=== PATIENT | female | born 1995 | race Caucasian/White ===

== ENCOUNTER 2017-05-06 00:46 | Emergency (ER) | payer OTHER ==
[~2017-05-06] VITALS: Ht 160 cm; Wt 50.0 kg
[2017-05-06 00:56] VITALS: BP 121/69; PULSE 70; RESP 15; TEMP 98.6; O2SAT 98
[2017-05-06] MEDS ORDERED: HYDR-3516 PO (01:02)
[2017-05-06] MEDS ORDERED: HYDROmorphone HCL PF 1 MG/ML VIAL IV PUSH ONE (01:45)
--- NOTE | 2017-05-06 02:08 | PD ---
HPI Chief Complaint: Pain: Acute or Chronic Time Seen by Provider: 01:30 Travel History International Travel<30 days: No Contact w/Intl Traveler<30days: No Traveled to known affect area: No History of Present Illness HPI The patient is a 22-year-old female that is post sinus surgery by Dr. Forbes at [facility] at 11 AM yesterday. She complains of extreme pain in the sinuses and has had some bleeding. She claims a pain level of 10 over 10. She is taking 1-1/2 of the [place] 5/325 tablets without relief. She had nausea and vomited once but is not nauseated now. She denies any fever. She is to take doxycycline and has already filled these tablets and has not yet taken one yet. She has a penicillin allergy. Her last dose of [place], one and a half tablets was 2 hours ago, around 11:30 PM tonight. The patient states there is no chance of . PFSH Past Medical History Kidney Stones: Yes Tetanus Vaccination: Unknown Influenza Vaccination: No ?: Not LMP: 04/15/2017 Past Surgical History Other Surgery: Yes (SINUS SX 05/05/17, LITHOTRIPSY X 2) Social History Alcohol Use: Yes (OCCASIONAL) Tobacco Use: No Substance Use: No Allergies-Medications (Allergen,Severity, Reaction): Coded Allergies: Penicillins (Verified Allergy, Intermediate, Rash, 05/06/17) Reported Meds & Prescriptions Reported Meds & Active Scripts Active Reported Hydrocodone-Acetaminophen 5-325 mg Tab 1 Tab PO Q4H PRN Review of Systems Except as stated in HPI: all other systems reviewed are Neg Physical Exam Narrative GENERAL: Well-nourished, well-developed patient in moderate apparent distress with her nasal/sinus pain. SKIN: Focused skin assessment warm/dry. HEAD: Normocephalic. EYES: No scleral icterus. No injection or drainage. NECK: Supple, trachea midline. No JVD or lymphadenopathy. CARDIOVASCULAR: Regular rate and rhythm without murmurs, gallops, or rubs. RESPIRATORY: Breath sounds equal bilaterally. No accessory muscle use. GASTROINTESTINAL: Abdomen soft, non-tender, nondistended. MUSCULOSKELETAL: No cyanosis, or edema. BACK: Nontender without obvious deformity. No CVA tenderness. ENT: No blood is coursing down the posterior pharyngeal wall. There is a slight ooze of blood coming anterior from the nose, it is only a few drops per hour. It slightly stains a 4 x 4. Data Data Last Documented VS Vital Signs Date Time Temp Pulse Resp B/P (MAP) Pulse Ox O2 Delivery O2 Flow Rate FiO2 05/06/17 00:56 98.6 70 15 121/69 (86) 98 Orders Orders Hydromorphone Pf Inj (Dilaudid Pf Inj) (05/06/17 01:45) MDM Medical Decision Making Medical Screen Exam Complete: Yes Emergency Medical Condition: Yes Medical Record Reviewed: Yes Differential Diagnosis Status post sinus surgery with active bleeding, with severe pain, with infection Narrative Course The patient is post sinus surgery with severe pain. The bleeding is not significant. The patient was given Dilaudid 1 mg IV and this seems to have reduced the pain to an acceptable level-1/10. Impression: Postoperative pain Diagnosis Primary Impression: Postoperative pain Additional Instructions: If you have recurrence of the severe pain you can take 2 tablets every 4 hours of the [place] 5/325. Follow-up later on this morning with Dr. Forbes. Med/Other Pt SpecificInfo: Existing Med Changed Disposition: 01 DISCHARGE HOME Condition: Stable Will Farrell MD May 06, 2017 02:08
[2017-05-06 02:14] VITALS: BP 114/64; PULSE 59; RESP 16; O2SAT 98
== END 2017-05-06 02:21 | disposition home or self-care (01) ==
LOC: PHED 00:46
DX: G89.18 Other acute postprocedural pain (principal)
CPT/HCPCS: 96374; 99284; J1170

== ENCOUNTER 2017-07-12 07:03 | Emergency (ER) | payer OTHER ==
[~2017-07-12] VITALS: Ht 160 cm; Wt 48.0 kg
[~2017-07-12 07:03] MED LIST: HYDR-3516 PO
[2017-07-12 07:05] VITALS: BP 126/61; PULSE 117; RESP 16; TEMP 97.7; O2SAT 98
[2017-07-12 07:23] LABS: BILIRUBIN, URINE NEG (NEG); BLOOD, URINE NEG (NEG); GLUCOSE,URINE NEG (NEG); KETONE, URINE NEG (NEG); NITRITE,URINE NEG (NEG); PH, URINE 5.5 (5.0-8.5); URINE LEUKOCYTE ESTERASE NEG (NEG)
[2017-07-12 07:31] LABS: RBC, URINE 0-3 /hpf (0-3); URINE COLOR YELLOW (YELLW/STRAW); WBC, URINE 0-2 /hpf (0-5)
[2017-07-12] MEDS ORDERED: SODIUM CHLOR 0.9% 1000 ML INJ 1,000 ML IV SCH (07:52)
--- NOTE | 2017-07-12 07:55 | PD ---
HPI Chief Complaint: GI Complaint Time Seen by Provider: 07:52 Travel History International Travel<30 days: No Contact w/Intl Traveler<30days: No Traveled to known affect area: No History of Present Illness HPI 22-year-old female patient presents to the ER today with several days history of nausea, vomiting, diarrhea, fevers or 102 last night, and lower back discomfort. She has had history of kidney stones and states that whenever she has had problems with kidney stones, she has had lower back discomfort. She denies significant abdominal pain, or other symptoms at this time. She has vomited 3 times already this morning. She does not know any sick contacts. Modifying Factors: None Associated Signs & Symptoms: Nausea, vomiting, diarrhea, fevers, lower back discomfort Risk Factors: Previous history of kidney stones PFSH Past Medical History Kidney Stones: Yes Past Surgical History Other Surgery: Yes (SINUS SX 05/05/17, LITHOTRIPSY X 2) Social History Alcohol Use: Yes (OCCASIONAL) Tobacco Use: No Substance Use: No Allergies-Medications (Allergen,Severity, Reaction): Coded Allergies: Penicillins (Verified Allergy, Intermediate, Rash, 07/12/17) Reported Meds & Prescriptions Reported Meds & Active Scripts Active Reported Hydrocodone-Acetaminophen 5-325 mg Tab 1 Tab PO Q4H PRN Review of Systems Except as stated in HPI: all other systems reviewed are Neg Physical Exam Narrative GENERAL: Well-developed young female patient currently in mild distress. Awake and oriented 3. SKIN: Focused skin assessment warm/dry. HEAD: Atraumatic. Normocephalic. EYES: Pupils equal and round. No scleral icterus. No injection or drainage. ENT: No nasal bleeding or discharge. Mucous membranes pink and moist. NECK: Trachea midline. No JVD. Supple. CARDIOVASCULAR: Regular rate and rhythm. No murmur appreciated. RESPIRATORY: No accessory muscle use. Clear to auscultation. Breath sounds equal bilaterally. GASTROINTESTINAL: Abdomen soft, non-tender, nondistended. Hepatic and splenic margins not palpable. Benign. MUSCULOSKELETAL: No obvious deformities. No clubbing. No cyanosis. No edema. NEUROLOGICAL: Awake and alert. No obvious cranial nerve deficits. Motor grossly within normal limits. Normal speech. PSYCHIATRIC: Appropriate mood and affect; insight and judgment normal. Data Data Last Documented VS Vital Signs Date Time Temp Pulse Resp B/P (MAP) Pulse Ox O2 Delivery O2 Flow Rate FiO2 1/14/18 08:49 77 18 106/54 (71) 100 Room Air 07/12/17 07:05 97.7 Orders Orders Urinalysis - C+S If Indicated (07/12/17 07:13) Ed Urine Pregnancytest Poc (07/12/17 07:13) Complete Blood Count With Diff (07/12/17 07:52) Comprehensive Metabolic Panel (07/12/17 07:52) Lipase (07/12/17 07:52) Iv Access Insert/Monitor (07/12/17 07:52) Ecg Monitoring (07/12/17 07:52) Oximetry (07/12/17 07:52) Ondansetron Inj (Zofran Inj) (07/12/17 08:00) Sodium Chlor 0.9% 1000 Ml Inj (Ns 1000 M (07/12/17 07:52) Sodium Chloride 0.9% Flush (Ns Flush) (07/12/17 08:00) Influenzae A/B Antigen (07/12/17 08:02) Labs Laboratory Tests Test 07/12/17 07:10 07/12/17 08:00 Urine Collection Type CLEAN CATCH Urine Color YELLOW Urine Turbidity CLEAR Urine pH 5.5 Urine Specific [place] 1.035 Urine Protein NEG mg/dL Urine Glucose (UA) NEG mg/dL Urine Ketones NEG mg/dL Urine Occult Blood NEG Urine Nitrite NEG Urine Bilirubin NEG Urine Leukocyte Esterase NEG Urine RBC 0-3 /hpf Urine WBC 0-2 /hpf Urine Squamous Epithelial Cells 6-8 /hpf Urine Yeast (Budding) OCC Microscopic Urinalysis Comment CULT NOT INDICATED Urine Collection Time 07:10 White Blood Count 7.1 TH/MM3 Red Blood Count 5.04 MIL/MM3 Hemoglobin 14.2 GM/DL Hematocrit 43.5 % Mean Corpuscular Volume 86.2 FL Mean Corpuscular Hemoglobin 28.2 PG Mean Corpuscular Hemoglobin Concent 32.7 % Red Cell Distribution Width 13.1 % Platelet Count 290 TH/MM3 Mean Platelet Volume 7.8 FL Neutrophils (%) (Auto) 68.2 % Lymphocytes (%) (Auto) 17.1 % Monocytes (%) (Auto) 9.5 % Eosinophils (%) (Auto) 4.8 % Basophils (%) (Auto) 0.4 % Neutrophils # (Auto) 4.9 TH/MM3 Lymphocytes # (Auto) 1.2 TH/MM3 Monocytes # (Auto) 0.7 TH/MM3 Eosinophils # (Auto) 0.3 TH/MM3 Basophils # (Auto) 0.0 TH/MM3 CBC Comment DIFF FINAL Differential Comment Blood Urea Nitrogen 18 MG/DL Creatinine 0.92 MG/DL Random Glucose 87 MG/DL Total Protein 8.2 GM/DL Albumin 3.8 GM/DL Calcium Level 8.8 MG/DL Alkaline Phosphatase 84 U/L Aspartate Amino Transf (AST/SGOT) 24 U/L Alanine Aminotransferase (ALT/SGPT) 23 U/L Total Bilirubin 0.3 MG/DL Sodium Level 136 MEQ/L Potassium Level 3.6 MEQ/L Chloride Level 106 MEQ/L Carbon Dioxide Level 21.3 MEQ/L Anion Gap 9 MEQ/L Estimat Glomerular Filtration Rate 76 ML/MIN Lipase 88 U/L MDM Medical Decision Making Medical Screen Exam Complete: Yes Emergency Medical Condition: Yes Medical Record Reviewed: Yes Interpretation(s) Laboratory Tests Test 07/12/17 07:10 07/12/17 08:00 Urine Squamous Epithelial Cells 6-8 /hpf (0-5) Urine Yeast (Budding) OCC (NONE) Monocytes (%) (Auto) 9.5 % (0.0-8.0) Eosinophils (%) (Auto) 4.8 % (0.0-4.0) Estimat Glomerular Filtration Rate 76 ML/MIN (>89) Differential Diagnosis Nausea, vomiting, diarrhea, fevers, lower back discomfort: Gastroenteritis versus influenza versus dehydration versus metabolic issues versus pancreatitis versus UTI versus , hyperemesis Narrative Course Patient is not . Lab work did not show significant metabolic issues or significant signs of dehydration. Influenza test is negative. Lipase is normal. UA did not show signs of UTI. At this point, symptoms are more indicative of a viral syndrome. Abdomen is benign and I do not suspect an acute intra-abdominal process. Patient was given IV fluid and Zofran in the ER. She did not have any further vomiting episodes. Vital signs are stable in the ER. At this point, my plan would be to release the patient would follow-up to primary care physician. We will give her further symptomatic relief or nausea and vomiting. Return for worsening in symptoms as needed. The plan has been discussed with her and she states understanding. Diagnosis Primary Impression: Nausea and vomiting Med/Other Pt SpecificInfo: Prescription(s) given Scripts Ondansetron Odt (Zofran Odt) 4 Mg Tab 4 MG SL Q6HR Y for Nausea/Vomiting, #7 TAB 0 Refills Prov: Maribel Lizarraga MD 07/12/17 Disposition: 01 DISCHARGE HOME Condition: Stable Maribel Lizarraga MD Jul 12, 2017 07:55
[2017-07-12] MEDS ORDERED: SODIUM CHLORIDE 0.9% FLUSH 10 ML FLUSH IV FLUSH PRN (08:00)
[2017-07-12] MEDS ORDERED: ONDANSETRON HCL 4 MG/2 ML VIAL IVP ONE (08:00)
[2017-07-12 08:10] LABS: AUTOMATED NEUTROPHIL # 4.9 TH/MM3 (1.8-7.7); BASOPHIL % 0.4 % (0.0-2.0); EOSINOPHIL # 0.3 TH/MM3 (0-0.4); EOSINOPHIL % 4.8 % (0.0-4.0); HEMATOCRIT 43.5 % (35.0-46.0); HEMOGLOBIN 14.2 GM/DL (11.6-15.3); LYMPH % 17.1 % (9.0-44.0); LYMPHOCYTE # 1.2 TH/MM3 (1.0-4.8); MEAN CELL VOLUME 86.2 FL (80.0-100.0); MEAN CORPUSCULAR HEMOGLOBIN 28.2 PG (27.0-34.0); MEAN CORPUSCULAR HGB CONC 32.7 % (32.0-36.0); MEAN PLATELET VOLUME 7.8 FL (7.0-11.0); MONO % 9.5 % (0.0-8.0); MONOCYTE # 0.7 TH/MM3 (0-0.9); NEUT % 68.2 % (16.0-70.0); PLATELET COUNT 290 TH/MM3 (150-450); RED BLOOD COUNT 5.04 MIL/MM3 (4.00-5.30); RED CELL DISTRIBUTION WIDTH 13.1 % (11.6-17.2); WHITE BLOOD COUNT 7.1 TH/MM3 (4.0-11.0)
[2017-07-12 08:16] LABS: CHLORIDE 106 MEQ/L (98-107); SODIUM (NA) 136 MEQ/L (136-145)
[2017-07-12 08:19] LABS: CALCIUM 8.8 MG/DL (8.5-10.1)
[2017-07-12 08:20] LABS: ALBUMIN 3.8 GM/DL (3.4-5.0); BICARBONATE 21.3 MEQ/L (21.0-32.0); BLOOD UREA NITROGEN 18 MG/DL (7-18); GLUCOSE,RANDOM 87 MG/DL (74-106); LIPASE 88 U/L (73-393)
[2017-07-12 08:23] LABS: ALT (GPT) 23 U/L (10-53); AST (GOT) 24 U/L (15-37); CREATININE 0.92 MG/DL (0.50-1.00); GLOMERULAR FILTRATION RATE 76 ML/MIN (>89)
[2017-07-12 08:24] LABS: TOTAL BILIRUBIN ADULT 0.3 MG/DL (0.2-1.0); TOTAL PROTEIN 8.2 GM/DL (6.4-8.2)
[2017-07-12 08:26] LABS: ALKALINE PHOSPHATASE 84 U/L (45-117)
[2017-07-12 08:49] VITALS: BP 106/54; PULSE 77; RESP 18; O2SAT 100
[2017-07-12] MEDS ORDERED: ZOFR4TAB3 SL (09:18)
[2017-07-12] MEDS ORDERED: IBUPROFEN 600 MG TAB PO ONE (09:30)
== END 2017-07-12 09:37 | disposition home or self-care (01) ==
LOC: PHED 07:03
DX: R11.2 Nausea with vomiting, unspecified (principal); Z87.442 Personal history of urinary calculi; Z88.0 Allergy status to penicillin
CPT/HCPCS: 80053; 81001; 83690; 84703; 85025; 87804; 96361; 96374; 99284; J2405; J7030

== ENCOUNTER 2017-09-23 14:31 | Emergency (ER) | payer OTHER ==
[~2017-09-23] VITALS: Ht 162.6 cm; Wt 50.9 kg
[~2017-09-23 14:31] MED LIST changes: +ZOFR4TAB3 SL
[2017-09-23 14:36] VITALS: BP 140/63; PULSE 108; RESP 16; TEMP 99.1; O2SAT 98
[2017-09-23 14:59] LABS: BILIRUBIN, URINE NEG (NEG); BLOOD, URINE NEG (NEG); GLUCOSE,URINE NEG (NEG); KETONE, URINE NEG (NEG); NITRITE,URINE NEG (NEG); PH, URINE 6.5 (5.0-8.5); URINE COLOR YELLOW (YELLW/STRAW); URINE LEUKOCYTE ESTERASE NEG (NEG)
[2017-09-23 15:06] LABS: BACTERIA, URINE OCC /hpf; RBC, URINE 0-3 /hpf (0-3); SQUAMOUS EPITHELIAL CELL URINE > 8 /hpf (0-5)
[2017-09-23] MEDS ORDERED: ONDANSETRON HCL 4 MG/2 ML VIAL IV PUSH ONE (15:15)
[2017-09-23] MEDS ORDERED: MORPHINE SULFATE 4 MG/ML INJ IV ONE (15:15)
--- NOTE | 2017-09-23 15:40 | RADRPT ---
EXAM DATE/TIME: 09/23/2017 15:23 [facility] COMPARISON: No previous studies available for comparison. INDICATIONS : Fever, chest pain post abdominal surgery yesterday MEDICAL HISTORY : None. SURGICAL HISTORY : Oocyte retreival ENCOUNTER: Initial ACUITY: 1 day PAIN SCORE: 10/10 LOCATION: Bilateral chest FINDINGS: A single view of the chest demonstrates the lungs to be symmetrically aerated without evidence of mas s, infiltrate or effusion. The cardiomediastinal contours are unremarkable. Osseous structures are intact. CONCLUSION: Normal examination for a patient of this age. Silverio Rajan MD on September 23, 2017 at 15:38 Board Certified Radiologist. This report was verified electronically.
[2017-09-23 15:47] VITALS: BP 99/69; PULSE 77; RESP 18; TEMP 98.9; O2SAT 99
[2017-09-23 15:53] LABS: BASOPHIL % 0.4 % (0.0-2.0); EOSINOPHIL # 0.2 TH/MM3 (0-0.4); EOSINOPHIL % 2.2 % (0.0-4.0); HEMATOCRIT 40.9 % (35.0-46.0); HEMOGLOBIN 13.4 GM/DL (11.6-15.3); LYMPH % 22.1 % (9.0-44.0); LYMPHOCYTE # 1.7 TH/MM3 (1.0-4.8); MEAN CELL VOLUME 84.8 FL (80.0-100.0); MEAN CORPUSCULAR HEMOGLOBIN 27.8 PG (27.0-34.0); MEAN CORPUSCULAR HGB CONC 32.8 % (32.0-36.0); MEAN PLATELET VOLUME 7.9 FL (7.0-11.0); MONO % 11.8 % (0.0-8.0); MONOCYTE # 0.9 TH/MM3 (0-0.9); NEUT % 63.5 % (16.0-70.0); PLATELET COUNT 240 TH/MM3 (150-450); RED BLOOD COUNT 4.83 MIL/MM3 (4.00-5.30); RED CELL DISTRIBUTION WIDTH 13.8 % (11.6-17.2); WHITE BLOOD COUNT 7.8 TH/MM3 (4.0-11.0)
[2017-09-23 16:01] LABS: CHLORIDE 102 MEQ/L (98-107); SODIUM (NA) 135 MEQ/L (136-145)
[2017-09-23 16:04] LABS: CALCIUM 8.8 MG/DL (8.5-10.1)
[2017-09-23 16:05] LABS: ALBUMIN 3.6 GM/DL (3.4-5.0); BICARBONATE 27.7 MEQ/L (21.0-32.0); BLOOD UREA NITROGEN 12 MG/DL (7-18); GLUCOSE,RANDOM 81 MG/DL (74-106)
[2017-09-23 16:08] LABS: ALT (GPT) 15 U/L (10-53); AST (GOT) 15 U/L (15-37); CREATININE 0.86 MG/DL (0.50-1.00); GLOMERULAR FILTRATION RATE 82 ML/MIN (>89)
[2017-09-23 16:10] LABS: TOTAL BILIRUBIN ADULT 0.2 MG/DL (0.2-1.0); TOTAL PROTEIN 7.7 GM/DL (6.4-8.2)
[2017-09-23 16:11] LABS: ALKALINE PHOSPHATASE 97 U/L (45-117)
--- NOTE | 2017-09-23 16:11 | PD ---
HPI . Abdominal pain Chief Complaint: Abdominal Pain Time Seen by Provider: 15:45 Travel History International Travel<30 days: No Contact w/Intl Traveler<30days: [place] Traveled to: [facility] Traveled to known affect area: No History of Present Illness HPI This patient presents with chief complaint of abdominal pain. She states that she feels bloated and constipated. Pain is exacerbated by walking and breathing. Pain is rated 7/10. Associated symptoms include nausea, vomiting, subjective fever and swelling. This patient is status post harvesting of eggs yesterday in [place]. PFSH Past Medical History Diminished Hearing: No Kidney Stones: Yes ?: Not Past Surgical History Other Surgery: Yes (SINUS SX 05/05/17, LITHOTRIPSY X 2) Social History Alcohol Use: Yes (OCCASIONAL) Tobacco Use: No Substance Use: No Allergies-Medications (Allergen,Severity, Reaction): Coded Allergies: Penicillins (Verified Allergy, Intermediate, Rash, 09/23/17) Reported Meds & Prescriptions Reported Meds & Active Scripts Active Zofran Odt (Ondansetron Odt) 4 Mg Tab 4 Mg SL Q6HR PRN Reported Hydrocodone-Acetaminophen 5-325 mg Tab 1 Tab PO Q4H PRN Review of Systems Except as stated in HPI: all other systems reviewed are Neg General / Constitutional: Positive: Fever, Chills Gastrointestinal: Positive: Nausea, Vomiting, Abdominal Pain, Constipation Genitourinary: Positive: Other (Patient has been receiving high dose hormone therapy in preparation for donation of eggs.), No: Urgency, Frequency, Dysuria Physical Exam Narrative GENERAL: Awake and alert and in no acute distress. SKIN: warm/dry. Her face is sunburned. HEAD: Normocephalic. Atraumatic. EYES: Pupils equal and round. No scleral icterus. No injection or drainage. ENT: No nasal bleeding or discharge. Mucous membranes pink and moist. NECK: Trachea midline. Full range of motion without pain.. CARDIOVASCULAR: Regular rate and rhythm. Heart sounds normal. RESPIRATORY: No accessory muscle use. Clear to auscultation. Breath sounds equal bilaterally. GASTROINTESTINAL: Abdomen soft. Lower abdominal tenderness. Bowel sounds present. Nondistended. MUSCULOSKELETAL: No obvious deformities. NEUROLOGICAL: Awake and alert. No obvious cranial nerve deficits. Motor grossly within normal limits. Normal speech. PSYCHIATRIC: Appropriate mood and affect; insight and judgment normal. Data Data Last Documented VS Vital Signs Date Time Temp Pulse Resp B/P (MAP) Pulse Ox O2 Delivery O2 Flow Rate FiO2 09/23/17 16:12 18 09/23/17 15:48 98 Room Air 09/23/17 15:47 98.9 77 99/69 (79) Orders Orders Urinalysis - C+S If Indicated (09/23/17 14:46) Ed Urine Pregnancytest Poc (09/23/17 14:46) Sepsis Workup Initiated (09/23/17 ) Complete Blood Count With Diff (09/23/17 15:03) Comprehensive Metabolic Panel (09/23/17 15:03) Lactic Acid Sepsis Protocol (09/23/17 15:03) Blood Culture (09/23/17 15:03) Chest, Single Ap (09/23/17 15:03) Blood Glucose (09/23/17 15:03) Ecg Monitoring (09/23/17 15:03) Iv Access Insert/Monitor (09/23/17 15:03) Oximetry (09/23/17 15:03) Oxygen Administration (09/23/17 15:03) Ondansetron Inj (Zofran Inj) (09/23/17 15:15) Ct Abd/Pel W Iv Contrast(Rout) (09/23/17 15:03) Morphine Inj (Morphine Inj) (09/23/17 15:15) Iohexol 350 Inj (Omnipaque 350 Inj) (09/23/17 16:15) Labs Laboratory Tests Test 09/23/17 14:40 09/23/17 15:35 09/23/17 15:40 Urine Collection Type CLEAN CATCH Urine Color YELLOW Urine Turbidity CLEAR Urine pH 6.5 Urine Specific [place] 1.015 Urine Protein NEG mg/dL Urine Glucose (UA) NEG mg/dL Urine Ketones NEG mg/dL Urine Occult Blood NEG Urine Nitrite NEG Urine Bilirubin NEG Urine Urobilinogen 0.2 MG/DL Urine Leukocyte Esterase NEG Urine RBC 0-3 /hpf Urine Squamous Epithelial Cells > 8 /hpf Urine Bacteria OCC /hpf Microscopic Urinalysis Comment CULT NOT INDICATED Urine Collection Time 14:40 White Blood Count 7.8 TH/MM3 Red Blood Count 4.83 MIL/MM3 Hemoglobin 13.4 GM/DL Hematocrit 40.9 % Mean Corpuscular Volume 84.8 FL Mean Corpuscular Hemoglobin 27.8 PG Mean Corpuscular Hemoglobin Concent 32.8 % Red Cell Distribution Width 13.8 % Platelet Count 240 TH/MM3 Mean Platelet Volume 7.9 FL Neutrophils (%) (Auto) 63.5 % Lymphocytes (%) (Auto) 22.1 % Monocytes (%) (Auto) 11.8 % Eosinophils (%) (Auto) 2.2 % Basophils (%) (Auto) 0.4 % Neutrophils # (Auto) 5.0 TH/MM3 Lymphocytes # (Auto) 1.7 TH/MM3 Monocytes # (Auto) 0.9 TH/MM3 Eosinophils # (Auto) 0.2 TH/MM3 Basophils # (Auto) 0.0 TH/MM3 CBC Comment DIFF FINAL Differential Comment Blood Urea Nitrogen 12 MG/DL Creatinine 0.86 MG/DL Random Glucose 81 MG/DL Total Protein 7.7 GM/DL Albumin 3.6 GM/DL Calcium Level 8.8 MG/DL Alkaline Phosphatase 97 U/L Aspartate Amino Transf (AST/SGOT) 15 U/L Alanine Aminotransferase (ALT/SGPT) 15 U/L Total Bilirubin 0.2 MG/DL Sodium Level 135 MEQ/L Potassium Level 3.7 MEQ/L Chloride Level 102 MEQ/L Carbon Dioxide Level 27.7 MEQ/L Anion Gap 5 MEQ/L Estimat Glomerular Filtration Rate 82 ML/MIN Lactic Acid Level 1.0 mmol/L MDM Medical Decision Making Medical Screen Exam Complete: Yes Emergency Medical Condition: Yes Differential Diagnosis Differential diagnosis of abdominal pain includes but is not limited to gastritis, pancreatitis, hepatitis, gastroenteritis, constipation, urinary retention, peptic ulcer disease, diverticulitis or appendicitis Narrative Course This patient presents complaining with postoperative abdominal pain. The pain started about 12 hours after the procedure. She states that her pain is associated with subjective fever, nausea vomiting and abdominal swelling. The procedure was done transvaginally. Basic labs, UA, chest x-ray and CT are pending. test was not done because of the recent high dose hormone therapy. It would be falsely positive. UA is negative for infection. CBC Diagram 09/23/17 15:35 BMP Diagram 09/23/17 15:35 Total Protein 7.7, Albumin 3.6, Calcium Level 8.8, Alkaline Phosphatase 97, Aspartate Amino Transf (AST/SGOT) 15, Alanine Aminotransferase (ALT/SGPT) 15, Total Bilirubin 0.2 LA 1.0 Last Impressions Chest X-Ray 09/23/17 1503 Signed Impressions: Service Date/Time: Saturday, September 23, 2017 15:23 - CONCLUSION: Normal examination for a patient of this age. Silverio Rajan MD CT: 1. No acute abdominal or pelvic pathology. 2. 8 mm benign-appearing left renal cyst. 3. Prominent ovaries with follicular cysts most likely related to fertility treatments. No significant etiology for abdominal pain was found. This patient is stable for discharge to home. Physician Communication Physician Communication Dr. Keen, who did the harvesting yesterday, reports that the procedure was without complication yesterday. She does not suspect that we will find anything seriously wrong with her. She does state that the patient needs to be checked for urinary tract infection because she did have a [place] catheter for the procedure. Dr. Keen also states that we can expect that her ovaries will appear very bruised and that she will probably have some blood in the pelvis. These things are to be expected. Diagnosis Primary Impression: Postoperative pain Patient Instructions: Abdominal Pain (ED), General Instructions Additional Instructions: Try an [id number] laxative such as milk of magnesia or magnesium citrate. Disposition: 01 DISCHARGE HOME Condition: Stable Selena Merino MD Sep 23, 2017 16:11
[2017-09-23] MEDS ORDERED: IOHEXOL 350 MG/ML 10 ML VIAL (for RAD DIAG) IVCONTRAST ONE (16:15)
--- NOTE | 2017-09-23 16:41 | RADRPT ---
EXAM DATE/TIME: 09/23/2017 16:10 [facility] COMPARISON: No previous studies available for comparison. INDICATIONS : Abdominal pain, swelling, and fever post oocyte donation yesterday. IV CONTRAST: 100 cc Omnipaque 350 (iohexol) IV ORAL CONTRAST: No oral contrast ingested. RADIATION DOSE: 4.79 CTDIvol (mGy) MEDICAL HISTORY : Renal calculi. SURGICAL HISTORY : None. ENCOUNTER: Initial ACUITY: 1 day PAIN SCALE: 10/10 LOCATION: abdomen TECHNIQUE: Volumetric scanning of the abdomen and pelvis was performed. Using automated exposure control and ad justment of the mA and/or kV according to patient size, radiation dose was kept as low as reasonably achievable to obtain optimal diagnostic quality images. DICOM format image data is available electro nically for review and comparison. FINDINGS: LOWER LUNGS: The visualized lower lungs are clear. LIVER: Homogeneous density without lesion. There is no dilation of the biliary tree. No calcified gallston es. SPLEEN: Normal size without lesion. PANCREAS: Within normal limits. KIDNEYS: Normal in size and shape. There is no mass, stone or hydronephrosis. Small 8 mm cyst mid pole left k idney. ADRENAL GLANDS: Within normal limits. VASCULAR: There is no aortic aneurysm. BOWEL/MESENTERY: The stomach, small bowel, and colon demonstrate no acute abnormality. There is no free intraperitone al air or fluid. Moderate stool throughout colon. No inflammatory changes. ABDOMINAL WALL: Within normal limits. RETROPERITONEUM: There is no lymphadenopathy. BLADDER: No wall thickening or mass. REPRODUCTIVE: Uterus is normal in size. The ovaries are prominent bilaterally with multiple prominent follicular cy sts. This is most likely related to fertility treatments. INGUINAL: There is no lymphadenopathy or hernia. MUSCULOSKELETAL: Within normal limits for patient age. CONCLUSION: 1. No acute abdominal or pelvic pathology. 2. 8 mm benign-appearing left renal cyst. 3. Prominent ovaries with follicular cysts most likely related to fertility treatments. Silverio Rajan MD on September 23, 2017 at 16:36 Board Certified Radiologist. This report was verified electronically.
[2017-09-23 16:47] VITALS: BP 100/61; PULSE 77; RESP 18; O2SAT 100
== END 2017-09-23 17:01 | disposition home or self-care (01) ==
LOC: PHED 14:31
DX: G89.18 Other acute postprocedural pain (principal); R10.9 Unspecified abdominal pain
CPT/HCPCS: 71045; 74177; 80053; 81001; 83605; 84703; 85025; 87040; 96374; 96375; 99285; J2270; J2405; Q9967